=== PATIENT | male | born 1985 | race Caucasian/White ===

== ENCOUNTER 2024-08-08 11:19 | Emergency (ER) | payer SELFPAY, OTHER ==
--- OUTSIDE RECORDS SUMMARY | 2024-08-08 11:23 | XMS REPORT | Continuity of Care Document ---
Author Name Unknown Address [address] [facility] [address] [place] [address] Organization [facility] [place] Address [address] [facility]. 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 [id number] SNOMED-CT Problem 2024-01-21 04:23:40 [facility] Allergies, Adverse Reactions, Alerts Allergy Name Allergy Type Status Severity Reaction(s) Onset Date Inactive Date Treating Clinician Comments Source No Known Allergie s DA Active U 12-11 00:00: 00 [facility] No Known Drug Allergie s DA Active UNKNOWN [facility] Vital Signs Vital Name Observation Time Observation Value Comments S ource Height 2024-01-22 10:29:07 067 Inches Body Weight 2024-01-22 10:29:07 200.00 pounds Height 2024-01-21 08:26:04 067 Inches Body Weight 2024-01-21 08:26:04 200.00 pounds Height 2024-01-21 04:57:58 067 Inches Body Weight 2024-01-21 04:57:58 200.00 pounds Respiratory Rate 2024-01-21 02:33:00 16 /min Body Weight 2024-01-21 02:33:00 90.72 kg Body Mass Index 2024-01-21 02:33:00 31.32 kg/m2 Systolic Blood Pressure 2024-01-21 02:33:00 130 mm[Hg] Diastolic Blood Pressure 2024-01-21 02:33:00 74 mm[Hg] Body Height 2024-01-21 02:33:00 170.1800 cm Oxygen Saturation 2024-01-21 02:33:00 99 % Heart Rate 2024-01-21 02:33:00 78.0 /min Height 2024-01-22 10:29:07 067 Inches Body Weight 2024-01-22 10:29:07 200.00 pounds Height 2024-01-21 08:26:04 067 Inches Body Weight 2024-01-21 08:26:04 200.00 pounds Height 2024-01-21 04:57:58 067 Inches Body Weight 2024-01-21 04:57:58 200.00 pounds Respiratory Rate 2024-01-21 02:33:00 16 /min Body Weight 2024-01-21 02:33:00 90.72 kg Body Mass Index 2024-01-21 02:33:00 31.32 kg/m2 Systolic Blood Pressure 2024-01-21 02:33:00 130 mm[Hg] Diastolic Blood Pressure 2024-01-21 02:33:00 74 mm[Hg] Body Height 2024-01-21 02:33:00 170.1800 cm Oxygen Saturation 2024-01-21 02:33:00 99 % Heart Rate 2024-01-21 02:33:00 78.0 /min Encounters Start Date/Time End Date/Time Encounter Type Admission Type Attending [facility] Care Department Encounter ID Source 2024-01-21 02:33:00 2024-01-21 04:57:00 Emergency NATALIE FRANCIS EMERGENCY ROOM [id number] [facility] 2024-01-21 02:33:00 2024-01-21 04:57:00 Outpatient [id number] 2022-12-11 20:37:00 2022-12-12 00:02:00 Emergency EM Antonieta Osorio [facility] [id number] [address] [facility] 2022-06-14 13:18:00 2022-06-14 14:15:00 Emergency E ALICIA MORA [facility] [address] Results Test Description Test Time Test Comments Results Result Co mments Source CBC W/AUTO [id number] 22:05:00* Test Item Value Reference Range Interpretation Comme nts WHITE BLOOD CELL (test code = WBC) 8.0 x10 3/uL 3.2-11.5 N RED BLOOD CELL (test code = RBC) 4.89 x10(6)/m 4.20-5.70 N HEMOGLOBIN (test code = HGB) 15.4 g/dL 12.9-17.3 N HEMATOCRIT (test code = HCT) 45.2 % 38.7-51.0 N MEAN CELL VOLUME (test code = MCV) 92 fL 80-100 N MEAN CELL HGB (test code = MCH) 31.5 pg 26.7-33.3 N MEAN CELL HGB CONCENTRATION (test code = MCHC) 34.1 g/dL 30.0-34.0 H RED CELL DISTRIBUTION WIDTH (test code = RDW) 12.1 % 11.3-14.5 N PLATELET COUNT (test code = PLT) 319 x10 3/uL 130-408 N MEAN PLATELET VOLUME (test c ode = MPV) 9.1 fL 8.6-12.6 N NEUTROPHIL % (test code = NT%) 62.7 % 40.0-70.0 N LYMPHOCYTE % (test code = LY%) 26.3 % 20-40 N MONOCYTE % (test code = MO%) 8.4 % 1-10 N EOSINOPHIL % (test code = EO%) 1.4 % 0.0-5.0 N BASOPHIL % (test code = BA%) 0.6 % 0.0-1.0 N NUCLEATED RBC % (test code = NRBC%) 0.0 % 0.0-0.9 N NEUTROPHIL # (test code = NT#) 5.0 x10 3/uL 1.6-7.2 N LYMPHOCYTE # (test code = LY#) 2.11 x10 3/uL 1.1-2.7 N MONOCYTE # (test code = MO#) 0.7 x10 3/uL 0.3-0.8 N EOSINOPHIL # (test code = EO#) 0.1 x10 3/uL 0.0-0.5 N IMMATURE GRANULOCYTE % (test code = IG%) 0.6 % 0.0-2.0 N BASOPHIL # (test code = BA#) 0.1 x10 3/uL 0.0-0.1 N RECOLLECT - CLOTTEDBASIC METABOLIC [id number] 22:01:00* Test Item Value Reference Range Interpretation Comme nts SODIUM (test code = NA) 138 mmol/L 135-145 N POTASSIUM (test code = K) 3.9 mmol/L 3.6-5.0 N CHLORIDE (test code = CL) 106 mmol/L 101-111 N CARBON DIOXIDE (test code = CO2) 25 mmol/L 21-31 N GLUCOSE (test code = GLU) 133 mg/dl 70-100 H BLOOD UREA NITROGEN (test code = BUN) 17 mg/dl 6-20 N GLOMERULAR FILTRATION RATE (test code = GFR) >=60 max estimate >60 The Glomerular Filtration Rate is a calculated parameterbased on serum Creatinine, patient age and sex. GFR valuesless than 60 mL/min/1.73 square meters are indicative ofChronic Kidney Disease. Values less than 15 mL/min/1.73square meters indicate Kidney failure. The calculation forGFR is based on the CKD-EPI (202) calculation. This formulais race indifferent and is the recommended formula for GFRby the National Kidney Foundation for Adults.The GFR will not calculate if the sex is unknown or if thepatient's age is <18 years. CREATININE (test code = CREAT) 1.05 mg/dL 0.64-1.27 N CALCIUM (test code = CA) 9.2 mg/dL 8.5-10.5 N INDEX HEMOLYSIS (test code = HEMINDEX) 1 Index/DL See_Comment [Automated messa ge] The system which generated this result transmitted reference range: 1 NORMAL. The reference range was not used to interpret this result as normal/abnormal. INDEX ICTERIC (test code = ICTINDEX) 1 Index/DL See_Comment [Automated messa ge] The system which generated this result transmitted reference range: 1 NORMAL. The reference range was not used to interpret this result as normal/abnormal. INDEX LIPEMIA (test code = LIPINDEX) 0 Index/DL See_Comment [Automated messa ge] The system which generated this result transmitted reference range: 1 NORMAL. The reference range was not used to interpret this result as normal/abnormal. PROTHROMBIN [id number] 21:52:00* Test Item Value Reference Range Interpretation [facility] PROTHROMBIN TIME PATIENT (test code = PTP) 11.1 SECONDS 10.5-13.1 N INTERNATIONAL NORMAL RATIO (test code = INR) 0.9 The INR is to be used only for monitoring oral anticoagulanttherap y. INDICATION INR VALUE --------1. Prophylaxis, deep venous thrombosis, 2.0 - 2.5 including high-risk surgery.2. Prophylaxis, deep venous thrombosis, 2.0 - 3.0 hip surgery, treatment for deep venous thrombosis or pulmonary prevention of systemic embolism in patients with valvular heart disease, atrial fibrillation, tissue heart valve, or acute myocardial infarction.3. Mechanical prosthesis heart valves, 3.0 - 4.5 recurrent systemic embolism. THROMBOPLASTIN TIME [id number] 21:52:00* Test Item Value Reference Range Interpretation [facility] THROMBOPLASTIN TIME PARTIAL (test code = PTT) 28 SECONDS 25-37 N [id number] 21:52:00* Test Item Value Reference Range Interpretation [facility] D-DIMER (test code = DDIMER) < 500 ng/mLFEU 0-500 N D-Dimer results are reported in ng/mL. These unitscorrespond to ng/mL Fibrinogen Equivalent Units (FEU). TheD-Dimer cut-off value is the same as the normal referencerange. A negative D-Dimer result when combined with aclinical assessment of low pretest probability has beenshown to have a high negative predictive value for deep veinthrombosis (DVT) and pulmonary embolism (PE). Elevatedlevels of D-Dimer are found in clinical conditions such asDVT, PE and disseminated intravascular coagulation (DIC).D-Dimer levels also rise during normal but veryhigh levels are associated with complications. CBC W/AUTO [id number] 21:45:00* Test Item Value Reference Range Interpretation Comme nts WHITE BLOOD CELL (test code = WBC) Test not performed x10 3/uL 3.2-11.5 N Previously reported result: 8.8 x10\\S\\3/uLEdited by: [id number] on 12/11/22:3CLOT JUAN ANTONIO RED BLOOD CELL (test code = RBC) Test not performed x10(6)/m 4.20-5.70 N Previously reported result: 5.05 x10(6)/mEdited by: [id number] on 12/11/22:2142 HEMOGLOBIN (test code = HGB) Test not performed g/dL 12.9-17.3 N Previously reported result: 16.0 g/dLEdited by: [id number] on 12/11/22 HEMATOCRIT (test code = HCT) Test not performed % 38.7-51.0 N Previously reported result: 46.3 %Edited by: [id number] on 12/11/22 MEAN CELL VOLUME (test code = MCV) Test not performed fL 80-100 N Previously reported result: 92 fLEdited by: [id number] on 12/11/22 MEAN CELL HGB (test code = MCH) Test not performed pg 26.7-33.3 N Previously reported result: 31.7 pgEdited by: [id number] on 12/11/22 MEAN CELL HGB CONCENTRATION (test code = MCHC) Test not performed g/dL 30.0-34.0 H Previously reported result: 34.6 g/dLEdited by: [id number] on 12/11/22:2143 RED CELL DISTRIBUTION WIDTH (test code = RDW) Test not performed % 11.3-14.5 PLATELET COUNT (test code = PLT) Test not performed x10 3/uL 130-408 MEAN PLATELET VOLUME (test code = MPV) Test not performed fL 8.6-12.6 N Previously reported result: 9.9 fLEdited by: [id number] on 12/11/22:2144 NEUTROPHIL % (test code = NT%) Test not performed % 40.0-70.0 LYMPHOCYTE % (test code = LY%) Test not performed % 20-40 MONOCYTE % (test code = MO%) Test not performed % 1-10 EOSINOPHIL % (test code = EO%) Test not performed % 0.0-5.0 BASOPHIL % (test code = BA%) Test not performed % 0.0-1.0 NUCLEATED RBC % (test code = NRBC%) Test not performed % 0.0-0.9 NEUTROPHIL # (test code = NT#) Test not performed x10 3/uL 1.6-7.2 LYMPHOCYTE # (test code = LY#) Test not performed x10 3/uL 1.1-2.7 MONOCYTE # (test code = MO#) Test not performed x10 3/uL 0.3-0.8 EOSINOPHIL # (test code = EO#) Test not performed x10 3/uL 0.0-0.5 PLATELET ESTIMATE (test code = PLTEST) Test not performed ADEQUATE IMMATURE GRANULOCYTE # (test code = IG#) Test not performed x10 3/uL 0-0.03 BASOPHIL # (test code = BA#) Test not performed x10 3/uL 0.0-0.1 PATHOLOGIST REVIEW TRIGGER (test code = PATHTRIGGER) Test not performed - XR CHEST 1 [id number] 21:44:00 [facility] Amara : 1985 Sex: MPatient Name: CHIRAG MONGE Unit No: [id number] EXAMS: CPT: [id number] XR CHEST 1 V [id number] PORTABLE CHEST, 12/11/2022. Comparison: None. CLINICAL: Dyspnea. COMMENT: The image was obtained in less than optimum inspiratory effort. The heart, mediastinum, hilar regions and pulmonary vasculature appear within normal limits. The lungs are free of active disease. The bony thorax is intact. IMPRESSION: No evidence to suggest active cardiopulmonary disease. at 2144 Reported and signed by: Gerald Velázquez MD CC: Antonieta Osorio MD Technologist: Cinthia Velarde Fluoro Time: DAP (Gy m2): Air Kerma (mGy): Trscr Dt/Tm: 12/11/2022 (2143) by:[email or web address] Orig Print D/T: S: 12/11/2022 (2146) BATCH NO: N/A Name: MARIPOSACHIRAG Maloney [facility] Phys: Antonieta Albarran MD [address] [place] [address] : 1985 Age: 37 Sex: M [place] [id number] Loc: N.ERS Exam Date: 12/11/2022 Status: PRE ER PH: FAX: PAGE 1 Signed Report Notes Date/Time Note Provider Source 2022-12-11 21:25:00 [id number] [place] [address] PATIENT NAME: CHIRAG MONGE ADMIT DATE: 12/11/22 ACCOUNT NO: [id number] ROOM NO: AGE: 37 REPORT TYPE: ELECTROCARDIOGRAM SEX: M ADMITTING PHYSICIAN: ATTENDING PHYSICIAN: Order: [id number] Test Reason : Resting 12-lead ECG Test Date/Time Stamp: ThuDec 11 2022 21:25:22 Blood Pressure : / mmHG Vent. Rate : 081 BPM Atrial Rate : 000 BPM P-R Int : 127 ms QRS Dur : 097 ms QT Int : 401 ms P-R-T Axes : 057 008 055 degrees QTc Int : 466 ms SINUS RHYTHM NONSPECIFIC T-WAVE ABNORMALITY BORDERLINE ECG Reviewed by Confirmed by FELICIANO MELGAR MD ([id number]) on 12/12/2022 11:08:59 AM Referred By: Self Referred Confirmed by:FELICIANO MELGAR MD at 1108 PATIENT NAME CHIRAG MONGE [facility] 2022-12-11 20:39:00 [facility] ([facility]) EMERGENCY PROVIDER REPORT REPORT#:[id number] REPORT STATUS: Signed DATE:12/11/22 TIME: 2038 PATIENT: CHIRAG MONGE UNIT #: [id number] ROOM: BED: AGE: 37 SEX: M PCP PHYS: No Primary or Family Physician SERVICE AUTHOR: Antonieta Osorio MD * ALL edits or amendments must be made on the electronic/computer document * HPI-General Illness Free Text HPI Notes Free Text HPI Notes 37-year-old male presents with complaints of chest pain and shortness of breath for the past 3 months. States that he has had shortness of breath and chest pain for that time and then it month ago he started having cough. Reports recently he has been coughing up "black stuff". Denies any fevers. States he has not seen any doctor because he does "not like you all" General Initial Greet Date/Time 12/11/222038 Presentation Chief Complaint Chest pain, Shortness of breath Review of Systems ROS Statements All systems rev neg except as marked. Past Medical History - Adult Stated Complaint NURSING HOME CLEARANCE Allergies Coded Allergies: No Known Allergies (12/11/22) Physical Exam Vital Signs Vital Signs First Documented: Result Date Time Pulse Ox 96 12/11 2052 B/P 130/90 12/11 2052 B/P Mean 103 12/11 2052 O2 Delivery Room air 12/11 2052 Temp 37.2 12/11 2052 Pulse 85 12/11 2052 Resp 12/11 Last Documented: Result Date Time Pulse Ox 97 12/11 2349 B/P 136/80 12/11 2349 Pulse 68 12/11 2349 Resp 12/11 B/P Mean 103 12/11 2052 O2 Delivery Room air 12/11 2052 Temp 37.2 12/11 2052 Review of Vital Signs Reviewed Free Text PE Notes Free Text PE Notes GEN: well-developed, sweaty HEENT: -Head: NC/AT -Neck: supple -Eyes: No discharge or redness; -Ears: External ears are normal. -Nose: Normal nares. -Mouth and throat: MMM. CV: RRR, no m/r/g. LUNGS: CTAB, no w/r/c. ABD: Soft, NT/ND, NBS, no masses or organomegaly. SKIN: Warm, well perfused. No skin rashes or abnormal lesions. MSK: No deformities. EXT: No edema. NEURO: Follows commands. Answers questions appropriately. Interpretation Diagnostics Lab Results Interpretation Results Laboratory Tests 12/11/222124: [Embedded Image Not Available] WBC TNP, Hgb TNP, Hct TNP, Plt Count TNP 12/11/222145: [Embedded Image Not Available] Laboratory Tests: 12/11 Chemistry Sodium (135 - 145 mmol/L) 138 Potassium (3.6 - 5.0 mmol/L) 3.9 Chloride (101 - 111 mmol/L) 106 Carbon Dioxide (21 - 31 mmol/L) 25 BUN (6 - 20 mg/dl) 17 Creatinine (0.64 - 1.27 mg/dL) 1.05 Glomerular Filtr Rate (>60) >=60 max estimate Glucose (70 - 100 mg/dl) 133 H Calcium (8.5 - 10.5 mg/dL) 9.2 Troponin I High Sens (0 - 20 pg/mL) 8 Specimen Appearance (1 NORMAL Index/DL) 1 Specimen Hemolysis (1 NORMAL Index/DL) 1 Coagulation INR 0.9 PTT ([place]) (25 - 37 SECONDS) 28 PT Patient/Control Mix (10.5 - 13.1 SECONDS) 11.1 D-Dimer (0 - 500 ng/mLFEU) < 500 Hematology WBC (3.2 - 11.5 x10 3/uL) TNP RBC (4.20 - 5.70 x10(6)/m) TNP Hgb (12.9 - 17.3 g/dL) TNP Hct (38.7 - 51.0 %) TNP MCV (80 - 100 fL) TNP MCH (26.7 - 33.3 pg) TNP MCHC (30.0 - 34.0 g/dL) TNP RDW (11.3 - 14.5 %) TNP Plt Count (130 - 408 x10 3/uL) TNP MPV (8.6 - 12.6 fL) TNP Neut % (Auto) (40.0 - 70.0 %) TNP Lymph % (Auto) (20 - 40 %) TNP Lassen % (Auto) (1 - 10 %) TNP Eos % (Auto) (0.0 - 5.0 %) TNP Baso % (Auto) (0.0 - 1.0 %) TNP Neut # (Auto) (1.6 - 7.2 x10 3/uL) TNP Lymph # (Auto) (1.1 - 2.7 x10 3/uL) TNP Lassen # (Auto) (0.3 - 0.8 x10 3/uL) TNP Eos # (Auto) (0.0 - 0.5 x10 3/uL) TNP Baso # (Auto) (0.0 - 0.1 x10 3/uL) TNP Nucleated RBC % (0.0 - 0.9 %) TNP Platelet Estimate (ADEQUATE) TNP Hem Pathologist Report TNP 12/11 2146 Hematology WBC (3.2 - 11.5 x10 3/uL) 8.0 RBC (4.20 - 5.70 x10(6)/m) 4.89 Hgb (12.9 - 17.3 g/dL) 15.4 Hct (38.7 - 51.0 %) 45.2 MCV (80 - 100 fL) 92 MCH (26.7 - 33.3 pg) 31.5 MCHC (30.0 - 34.0 g/dL) 34.1 H RDW (11.3 - 14.5 %) 12.1 Plt Count (130 - 408 x10 3/uL) 319 MPV (8.6 - 12.6 fL) 9.1 Neut % (Auto) (40.0 - 70.0 %) 62.7 Lymph % (Auto) (20 - 40 %) 26.3 Lassen % (Auto) (1 - 10 %) 8.4 Eos % (Auto) (0.0 - 5.0 %) 1.4 Baso % (Auto) (0.0 - 1.0 %) 0.6 Neut # (Auto) (1.6 - 7.2 x10 3/uL) 5.0 Lymph # (Auto) (1.1 - 2.7 x10 3/uL) 2.11 Lassen # (Auto) (0.3 - 0.8 x10 3/uL) 0.7 Eos # (Auto) (0.0 - 0.5 x10 3/uL) 0.1 Baso # (Auto) (0.0 - 0.1 x10 3/uL) 0.1 Immature Gran % (0.0 - 2.0 %) 0.6 Nucleated RBC % (0.0 - 0.9 %) 0.0 Recent Impressions: RADIOLOGY - XR CHEST 1 V 12/11 2130 Report Impression - Status: SIGNED Entered: 12/11/20222146 IMPRESSION: No evidence to suggest active cardiopulmonary disease. Impression By: [id number] - Gerald Velázquez MD Lab Imaging Statement Laboratory radiographic studies reviewed and considered in the medical decision-making. ECG #1 Interpretation Text/Dict Note EKG reviewed and interpreted by me with sinus rhythm with rate 80 bpm, no ST elevations or depressions. ECG Documented in MUSE Yes Interpreted by and reviewed by me, Independently interpreted, ED physician Radiography X-Ray Chest View Portable Interpretation/Wet Read by Interpreted by me, Wet read ED physician NL CXR Findings No acute disease, No infiltrate Re-Evaluation MDM Free Text MDM Notes Free Text MDM Notes Differential diagnosis includes but limited to ACS, pneumonia, pneumothorax, malignancy, PE Plan: CBC, BMP, troponin, coags, D-dimer EKG Chest x-ray Additional Text ED course: EKG reviewed and interpreted by me with sinus rhythm with rate 80 bpm, no ST elevations or depressions. Patient labs reviewed. Hemoglobin normal. No leukocytosis. D-dimer less than 500. Normal coagulation studies. Chest x-ray reviewed interpreted me without consolidation or pneumothorax. Patient informed of the results of his testing. Given that length of time he reports that this has been going on patient will need to follow-up with as outpatient. He has not had any episodes of hemoptysis while in the emergency department. His vitals have remained stable. Free Text MDM Notes Free Text MDM Notes MDM Details Complexity of Problems Addressed _(Moderate) I am concerned about a Moderate complexity problem which was evidenced by the differential, and associated workup for the problem: As per HPI, which is an -acute undiagnosed new problem with uncertain prognosis Complexity of Data Review _(# Of Data Points) Ordered and reviewed the following tests: As listed in plan _(Alternate Historian) For improved patient care, I received an additional history from The police _(Image/Tracing interpretation) I contemporaneously during the patient encounter interpreted the following radiographic image(s) and these are my findings: As above Risk of Management _(Medication/Presciption Management) I performed prescription/medication management this visit as evidenced by prescribing medications as listed/ prescribed/dispensed in MAR, a new prescription/medication (prescribed or given in ED) _(Social Determinants of Health) This patient's health conditions are influenced by the following social determinants of health which cause increased risk of management: Health Literacy, Limited access to care Patient Discharge Departure Vital Signs/Condition Vital Signs First Documented: Result Date Time Pulse Ox 96 12/11 2052 B/P 130/90 12/11 2052 B/P Mean 103 12/11 2052 O2 Delivery Room air 12/11 2052 Temp 37.2 12/11 2052 Pulse 85 12/11 2052 Resp 18 12/11 2052 Last Documented: Result Date Time Pulse Ox 97 12/11 2349 B/P 136/80 12/11 2349 Pulse 68 12/11 2349 Resp 18 12/11 2349 B/P Mean 103 12/11 2052 O2 Delivery Room air 12/11 2052 Temp 37.2 12/11 2052 All vital signs available at the time of this entry have been reviewed. Clinical Impression Clinical Impression Primary Impression: Chest pain Secondary Impressions: Cough, Shortness of breath Disposition Decision Discharge )( Discharged to Home Yes )( Time 2344 )( Date 12/11/22 Discharge/Care Plan Counseled Regarding Diagnosis, Lab results, Imaging studies, Need for follow-up, When to return to ED Patient Instructions ED Chest Pain, Uncertain Cause, ED Shortness of Breath ( Dyspnea) Additional Instructions Please take all medication as directed if any has been prescribed. Please follow-up with your primary doctor within 1 week regardless of how you feel. Return to the ED immediately for any new or worsening symptoms Departure Forms [facility] Discharge Note I have spoken with the patient and/or caregivers. I have explained the patient's condition, diagnoses and treatment plan based on the information available to me at this time. I have answered the patient's and/or caregiver's questions and addressed any concerns. The patient and/or caregivers have as good an understanding of the patient's diagnosis, condition and treatment plan as can be expected at this point. The vital signs have been stable. The patient's condition is stable and appropriate for discharge from the emergency department. The patient will pursue further outpatient evaluation with the primary care physician or other designated or consulting physician as outlined in the discharge instructions. The patient and/or caregivers are agreeable to this plan of care and follow-up instructions have been explained in detail. The patient and/or caregivers have received these instructions in written format and have expressed an understanding of the discharge instructions. The patient and/or caregivers are aware that any significant change in condition or worsening of symptoms should prompt an immediate return to this or the closest emergency department or a call to 911. at 1839 [facility] #:[id number] END OF REPORT HCANW
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
== END 2024-08-08 12:43 | disposition left against medical advice (07) ==
LOC: ER 11:19
DX: M54.50 Low back pain, unspecified (principal)
CPT/HCPCS: 99282